=== PATIENT | male | born 2000 | race Caucasian/White ===

== ENCOUNTER 2023-11-23 10:02 | Emergency (ER) | payer OTHER, BC ==
[2023-11-23] VITALS (11 sets, daily range): BP systolic 98–117; BP diastolic 71–79
[~2023-11-23] VITALS: Ht 175.3 cm; Wt 84.0 kg
[2023-11-23] MEDS ORDERED: NAPROXEN500 MG PO (14:59)
== END 2023-11-23 15:18 | disposition home or self-care (01) | DRG 90 ==
LOC: ED 10:02
DX: S06.0X0A Concussion without loss of consciousness, initial encounter (principal); M54.50 Low back pain, unspecified; M54.6 Pain in thoracic spine; M54.2 Cervicalgia; V49.40XA Driver injured in collision with unspecified motor vehicles in traffic accident, initial encounter